=== PATIENT | male | born 1955 | race Caucasian/White ===

== ENCOUNTER 2023-08-06 12:59 | Emergency (ER) | payer MEDICARE, SELFPAY ==
[2023-08-06 13:05] VITALS: BP 193/82; PULSE 79; RESP 18; TEMP 36.6; O2SAT 97; BMI 29.2
--- NOTE | 2023-08-06 13:38 | XRR_ITS ---
PROCEDURE INFORMATION: Exam: XR Chest Exam date and time: 08/06/2023 1:50 PM Age: 68 years old Clinical indication: Shortness of breath; Additional info: Poss aspiration TECHNIQUE: Imaging protocol: Radiologic exam of the chest. Views: 1 view. COMPARISON: No relevant prior studies available. FINDINGS: Lungs: Unremarkable. No consolidation. Pleural spaces: Blunt right costophrenic angle possibly due to scarring or pleural effusion. No pneumothorax. Heart/Mediastinum: Unremarkable. No cardiomegaly. Bones/joints: Unremarkable. There is elevation of the right hemidiaphragm. XR/XR chest 1V portable [id number] IMPRESSION: Blunt right costophrenic angle and elevation of the right hemidiaphragm.
--- NOTE | 2023-08-06 19:09 | PC.NURSE ---
Pt states he apsirated chicken he ate last night. States this happens off and on.
[2023-08-06 19:10] VITALS: BP 194/103; PULSE 92; RESP 16; O2SAT 97
--- NOTE | 2023-08-06 19:12 | W.ED.GENADLT ---
HPI - General Adult General: Chief complaint: Airway/Esophagus Foreign Body Stated complaint: sob Time Seen by Provider: 08/06/23 18:47 Source: patient Mode of arrival: ambulatory Limitations: no limitations History of Present Illness: 68-year-old male who states that he had a history of choking episode on food and with aspiration states he choked on some food 2 days ago and has been having some pain in the right side of his lungs along with a cough. Denies any shortness of breath denies any fevers she denies any worsening improving factors. Associated symptoms: Deny dyspnea, headache(s), nausea, rash or vomiting Review of Systems Const: Denies: fever(s), chills, body aches or change in appetite Eyes: Denies: blurry vision or eye discomfort ENMT: Denies: throat pain or dental pain Resp: Reports: non-productive cough; Denies: dyspnea GI: Denies: abdominal pain, nausea, vomiting or diarrhea Musc: Denies: neck pain or back pain Skin/Breast: Denies: rash Neuro: Denies: headache(s) Physical Exam Const: COMMON NORMALS: no acute distress, patient oriented x3 and healthy appearing HENMT: COMMON NORMALS: normocephalic and atraumatic HEAD & SCALP: normocephalic and atraumatic Eye: COMMON NORMALS: Equal, round and reactive pupils present and EOMs intact bilaterally PUPIL: Yes Equal, round and reactive pupils present Neck/C-Spine: COMMON NORMALS: full ROM and supple Chest: COMMONS NORMALS: normal inspection of the chest Resp: COMMON NORMALS: normal respiratory effort, No retractions, No use of accessory muscles and clear to auscultation bilaterally AUSCULTATION: clear to auscultation bilaterally Cardio: COMMON NORMALS: regular rate, regular rhythm and No murmurs present (Cardio) RATE: regular rate RHYTHM: regular rhythm Extremity: COMMON NORMALS: normal to inspection and full ROM Neuro: COMMON NORMALS: patient oriented x3, moves all extremities and no focal motor deficits Psych: COMMON NORMALS: mental status grossly normal, Normal thought process present and cooperative THOUGHT PROCESS: Normal thought process present Skin: COMMON NORMALS: no rashes or lesions noted and no wounds GENERAL SKIN EXAM: no rashes or lesions noted Course Vital Signs: Vital signs: Vital Signs Temperature 97.9 F 08/06/23 13:05 Pulse Rate 92 08/06/23 19:10 Respiratory Rate 16 08/06/23 19:10 Blood Pressure 194/103 08/06/23 19:10 Pulse Oximetry 97 08/06/23 19:10 Oxygen Delivery Me thod Room Air 08/06/23 13:05 MDM - General Adult Medical Decision Making Patient presents here with concern of aspiration x-ray here shows no pneumonia. He had actually coughed up some cauliflower here he feels much improved we will start him on doxycycline will get him follow-up with pulmonology for possible bronc he has any worsening symptoms she is to return immediately he understands agrees to plan. Medical Records I reviewed the patient's medical records. Lab Data Radiology Impressions Chest X-Ray 08/06/23 13:38 IMPRESSION: Blunt right costophrenic angle and elevation of the right hemidiaphragm. All radiology interpretation(s) finalized by discharge EKG Data EKG 1: I personally reviewed and interpreted this EKG as follows: EKG interpretation date: 08/06/23 EKG interpretation time: 18:59 Interpretation: nsr hr [address] or t wave abnormalities qrs 86 qtc 411 Computer generated interpretation: Chest X-Ray 08/06/23 13:38 IMPRESSION: Blunt right costophrenic angle and elevation of the right hemidiaphragm. Discharge Plan Discharge Patient Disposition: Home Clinical Impression: Choking episode, Cough Condition: Stable Prescriptions: New doxycycline hyclate 100 mg tablet 100 mg PO BID 7 Days Qty: 14 0RF Discharge Orders: Discharge ED (Routine); Ordered 08/06/23 Ordered By: Cody Welch Referrals: DatarScott MD [Physician] - 1-3 days Discharge Diet: Advance as tolerated Discharge Activity: Resume usual activity Patient Instructions: Acute Cough (ED) Coding Level of Care Code ED Spanish Speaking Nanny for Timo Lopez
[2023-08-06 19:23] VITALS: BP 169/99; PULSE 91; RESP 16; O2SAT 95
--- NOTE | 2023-08-14 07:51 | DCPLANNER ---
Message sent to [facility] for follow up with Dr. Gross
== END 2023-08-06 19:23 | disposition home or self-care (01) ==
PROVIDERS: Emergency Provider Emergency Medicine
DX: R05.9 Cough, unspecified (principal); T17.928A Food in respiratory tract, part unspecified causing other injury, initial encounter; W44.F3XA Food entering into or through a natural orifice, initial encounter
CPT/HCPCS: 71045; 99283

== ENCOUNTER → 2023-10-04 08:04 | Outpatient (BNVA) | payer MEDICARE, SELFPAY | PROVIDERS: PCP Registered Nurse; Referring Provider Registered Nurse; Visit Provider Nurse Practitioner | DX: M19.012 Primary osteoarthritis, left shoulder (principal); M75.42 Impingement syndrome of left shoulder; M67.912 Unspecified disorder of synovium and tendon, left shoulder | CPT/HCPCS: 99204 ==

== ENCOUNTER → 2023-11-01 08:51 | Outpatient (BNVA) | payer MEDICARE, SELFPAY | PROVIDERS: PCP Registered Nurse; Visit Provider Nurse Practitioner | DX: M19.012 Primary osteoarthritis, left shoulder (principal); M67.912 Unspecified disorder of synovium and tendon, left shoulder; M75.42 Impingement syndrome of left shoulder | CPT/HCPCS: 20610; 99213; J1100; J2795; J3301 ==